=== PATIENT | female | born 1945 | race Caucasian/White ===

== ENCOUNTER 2017-11-16 02:06 | Emergency (ER) | payer OTHER ==
[~2017-11-16] VITALS: Ht 160 cm; Wt 102.1 kg
[~2017-11-16 02:06] MED LIST: AMARYL2 MG PO; COREG12.5 M1 PO; COUMADIN1 MG PO; EFFEXOR75 MG PO; ENDOCET 5-3251 EACH PO; GLUCOPHAGE1000 MG PO; HYDROCODON-ACE1 EAC7 PO; IRON325 MG PO; K-DUR10 MEQ PO; LASIX20 MG PO; MOBIC15 MG PO; TRIANEX17 GM TP; ZESTRIL20 MG PO; ZITHROMAX Z-PA250 MG PO; celeBREX PO
[2017-11-16 03:10] LABS: HEMATOCRIT 36.8 % (36.0-46.0); HEMOGLOBIN 12.2 G/DL (11.9-15.5); MCHC 33.2 G/DL (30.0-36.0); MCV 90.6 FL (83-99); PLATELET COUNT 370 K/uL (156-360); RBC DIS.WIDTH-CV 13.5 % (11.8-14.6); RBC DIS.WIDTH-SD 45.3 % (39-53); RED BLOOD COUNT 4.06 M/uL (3.80-5.20)
[2017-11-16 03:24] LABS: CHLORIDE 95 mEq/L (99-109); POTASSIUM 4.1 mEq/L (3.7-5.4); SODIUM 131 mEq/L (136-147)
[2017-11-16 03:30] LABS: UREA NITROGEN (BUN) 27 mg/dL (9-23)
[2017-11-16 03:40] LABS: CREATININE 1.3 mg/dL (0.6-1.3); GFR ESTIMATE (CALCULATED) 43 mL/min/
[2017-11-16 03:53] LABS: GLUCOSE 34 mg/dL (70-99)
[2017-11-16] MEDS ORDERED: REGLAN10 MG PO (08:04)
[2017-11-16 08:13] VITALS: BP 153/72
== END 2017-11-16 08:22 | disposition home or self-care (01) ==
LOC: EME → EDBD 02:06 → EME 08:22
PROVIDERS: Emergency Medicine
DX: E11.649 Type 2 diabetes mellitus with hypoglycemia without coma (principal); Z79.84 Long term (current) use of oral hypoglycemic drugs; Z98.890 Other specified postprocedural states; Z90.710 Acquired absence of both cervix and uterus; I10 Essential (primary) hypertension; Z86.73 Personal history of transient ischemic attack (TIA), and cerebral infarction without residual deficits
CPT/HCPCS: 80048; 82948; 85027; 99281; 99284; J2765

== ENCOUNTER 2017-11-29 21:02 | Observation (INO) | payer OTHER ==
[~2017-11-29] VITALS: Ht 160 cm; Wt 107.6 kg
[~2017-11-29 21:02] MED LIST changes: +ALLOPURINOL300 MG PO; +AMLODIPINE BESYL5 MG PO; +COLACE100 MG PO; +COMPAZINE10 MG PO; +DEMADEX10 MG PO; +DURAGESIC50 MCG TD; +LOVENOX40 MG/0.4 SC; +MIRALAX17 GM PO; +OXYCODONE HCL20 M1 PO; +PROZAC10 MG PO; +REGLAN10 MG PO; +SENOKOT,SENN1 TABLET PO; +VITAMIN B-121000 MC1 SL; +ZOFRAN8 MG PO; +ZYLOPRIM100 MG PO
[2017-11-29 22:36] LABS: INTER. NORMALIZED RATIO 1.2
[2017-11-29 22:50] LABS: HEMOGLOBIN 9.4 G/DL (11.9-15.5); MCH 29.9 PG (29.0-34.0); MCHC 32.4 G/DL (30.0-36.0); MCV 92.4 FL (83-99); RBC DIS.WIDTH-CV 14.1 % (11.8-14.6); RBC DIS.WIDTH-SD 47.3 % (39-53); RED BLOOD COUNT 3.14 M/uL (3.80-5.20)
[2017-11-29 22:52] LABS: TROP-I INTERPRETATION NEGATIVE; TROPONIN-I < 0.01 ng/mL (0.0-0.30)
[2017-11-29 23:09] LABS: ALBUMIN 3.2 G/DL (3.2-4.8); ALKALINE PHOSPHATASE 121 IU/L (3-129); ALT (GPT) 13 IU/L (3-49); AST (GOT) 11 IU/L (2-34); CHLORIDE 100 MEQ/L (99-109); CREATININE 0.9 MG/DL (0.6-1.3); GFR ESTIMATE (CALCULATED) > 59 mL/min/; GLUCOSE 157 mg/dL (70-99); LIPASE 4 U/L (1.0-51.0); MAGNESIUM 1.7 mg/dl (1.3-2.7); POTASSIUM 3.5 MEQ/L (3.7-5.4); SODIUM 137 MEQ/L (136-147); TOTAL PROTEIN 5.8 G/DL (6.4-8.3); UREA NITROGEN (BUN) 5 mg/dL (9-23)
[2017-11-29 23:10] LABS: TOTAL BILIRUBIN 0.5 MG/DL (0.0-1.0)
[2017-11-29 23:35] LABS: PLAT.SUFFICIENCY ADEQUATE; PLATELET COUNT 150 K/uL (156-360)
[2017-11-30] MEDS ORDERED: PHILLIPS'400 MG/5 M PO (02:03)
[2017-11-30] MEDS ORDERED: DURAGESIC12 MCG TD (02:03)
[2017-11-30] MEDS ORDERED: VIRT-PHOS 250250 MG PO (02:04)
[2017-11-30 03:00] LABS: APPEARANCE CLEAR ((CLEAR)); BILIRUBIN NEGATIVE; BLOOD NEGATIVE; COLOR YELLOW ((YELLOW)); GLUCOSE (STRIP) NEGATIVE; KETONES 5; LEUKOCYTES NEGATIVE; NITRITE NEGATIVE; PROTEIN (STRIP) NEGATIVE; SPECIFIC GRAVITY 1.031 (1.000-1.030); UCUL ADDED? NO; UROBILINOGEN 0.2 MG/DL (0.2-1.0)
[2017-11-30 03:22] VITALS: BP 147/71
[2017-11-30 12:19] VITALS: BP 140/65
[2017-11-30] MEDS ORDERED: MORPHINE CON20 MG/M1 PO (13:15)
[2017-11-30] MEDS ORDERED: HYOSCYAMINE0.125 M2 PO (13:15)
[2017-11-30] MEDS ORDERED: ATIVAN INTE2 MG/1 ML PO (13:15)
[2017-11-30 20:40] VITALS: BP 138/72
== END 2017-11-30 22:44 | disposition hospice, home (50) ==
LOC: EME 21:02 → EDOF 11-30 01:51 → ENRESERV 11-30 01:54 → 4SOUTH 11-30 02:54
PROVIDERS: Emergency Medicine; Internal Medicine
DX: G89.3 Neoplasm related pain (acute) (chronic) (principal); K59.00 Constipation, unspecified; C77.2 Secondary and unspecified malignant neoplasm of intra-abdominal lymph nodes; C77.5 Secondary and unspecified malignant neoplasm of intrapelvic lymph nodes; Z85.42 Personal history of malignant neoplasm of other parts of uterus; Z85.828 Personal history of other malignant neoplasm of skin; Z92.21 Personal history of antineoplastic chemotherapy; I10 Essential (primary) hypertension; E78.5 Hyperlipidemia, unspecified; E11.9 Type 2 diabetes mellitus without complications; M19.90 Unspecified osteoarthritis, unspecified site; Z86.718 Personal history of other venous thrombosis and embolism; D68.51 Activated protein C resistance; Z86.73 Personal history of transient ischemic attack (TIA), and cerebral infarction without residual deficits; E53.8 Deficiency of other specified B group vitamins; Z90.710 Acquired absence of both cervix and uterus; Z90.79 Acquired absence of other genital organ(s); Z90.722 Acquired absence of ovaries, bilateral; Z96.653 Presence of artificial knee joint, bilateral; Z80.0 Family history of malignant neoplasm of digestive organs; Z80.6 Family history of leukemia; Z79.01 Long term (current) use of anticoagulants; E66.01 Morbid (severe) obesity due to excess calories; Z68.41 Body mass index [BMI] 40.0-44.9, adult; Z66 Do not resuscitate
CPT/HCPCS: 74177; 80053; 81003; 82948; 83605; 83690; 83735; 83880; 84484; 85027; 85610; 85730; 93005; 94799; 99281; 99285; C1753; G0378; J1650; J1885; J2270; J2405; J2765; J3010; J3480